=== PATIENT | male | born 1990 | race Caucasian/White ===

== ENCOUNTER 2017-01-11 13:38 | Emergency (ER) | payer MEDICAID, OTHER ==
[2017-01-11 13:45] VITALS: BP 136/74
--- NOTE | 2017-01-11 13:57 | ER Document Report ---
ED Medical Screen (RME) - General Stated Complaint: STD CHECK Notes: did not use protection symptom onset for 5 weeks penile discharge and pyuria denies fever, chills, testicular pain I have greeted and performed a rapid initial assessment of this patient. A comprehensive ED assessment and evaluation of the patient, analysis of test results and completion of the medical decision making process will be conducted by additional ED providers. TRAVEL OUTSIDE OF THE [place] IN LAST 30 DAYS: No - Related Data Allergies/Adverse Reactions: No Known Allergies Allergy (Verified 01/11/17 13:55) Past Medical History Past Surgical History: Reports: Hx Appendectomy, Hx Tonsillectomy - Immunizations Immunizations up to date: Yes Hx Diphtheria, Pertussis, Tetanus Vaccination: Yes Physical Exam - Vital signs Vitals: Temp Pulse Resp BP Pulse Ox 98.5 F 69 16 136/74 H 99 01/11/17 13:44 01/11/17 13:44 01/11/17 13:44 01/11/17 13:44 01/11/17 13:44 Course - Vital Signs Vital signs: Temp Pulse Resp BP Pulse Ox 98.5 F 69 16 136/74 H 99 01/11/17 13:44 01/11/17 13:44 01/11/17 13:44 01/11/17 13:44 01/11/17 13:44
[2017-01-11 14:23] LABS: APPEARANCE,URINE CLEAR; BILIRUBIN,URINE NEGATIVE (NEGATIVE); GLUCOSE, URINE NEGATIVE (NEGATIVE); KETONES,URINE NEGATIVE (NEGATIVE); LEUKOCYTE ESTERASE,URINE NEGATIVE (NEGATIVE); NITRITE,URINE NEGATIVE (NEGATIVE); PROTEIN,URINE NEGATIVE (NEGATIVE); URINE SPECIFIC GRAVITY 1.012; UROBILINOGEN,URINE NEGATIVE mg/dL (<2.0)
[2017-01-11] MEDS ORDERED: CEFTRIAXONE INJ 250 MG VIAL IM ONE (15:18)
[2017-01-11] MEDS ORDERED: AZITHROMYCIN 1 GM SUSP PACKET PO ONE (15:19)
--- NOTE | 2017-01-11 15:19 | ER Document Report ---
ED General - General Chief Complaint: Penile Discharge Stated Complaint: STD CHECK Mode of Arrival: Ambulatory Information source: Patient Notes: Patient is 26 yo male who presents with 2 day history of thin, mild white penile discharge and occasional pyuria with dysuria. He reports unprotected sex approximately 5 weeks ago, endorses history of G/C. He denies any fever, chills , n/v/d or testicular pain. He is concerned about small lesion on the shaft of his penis and is wondering if it is skin tag vs wart. TRAVEL OUTSIDE OF THE [place] IN LAST 30 DAYS: No - Related Data Allergies/Adverse Reactions: No Known Allergies Allergy (Verified 01/11/17 13:55) Past Medical History - Social History Smoking Status: Never Smoker Chew tobacco use (# tins/day): No Frequency of alcohol use: None Drug Abuse: None Family History: Reviewed & Not Pertinent Patient has suicidal ideation: No Patient has homicidal ideation: No Renal/ Medical History: Denies: Hx Peritoneal Dialysis Past Surgical History: Reports: Hx Appendectomy, Hx Tonsillectomy - Immunizations Immunizations up to date: Yes Hx Diphtheria, Pertussis, Tetanus Vaccination: Yes Review of Systems - Review of Systems Constitutional: No symptoms reported EENT: No symptoms reported Cardiovascular: No symptoms reported Respiratory: No symptoms reported Gastrointestinal: No symptoms reported Genitourinary: See HPI Male Genitourinary: See HPI Musculoskeletal: No symptoms reported Skin: No symptoms reported Hematologic/Lymphatic: No symptoms reported Neurological/Psychological: No symptoms reported Physical Exam - Vital signs Vitals: Temp Pulse Resp BP Pulse Ox 98.5 F 69 16 136/74 H 99 01/11/17 13:44 01/11/17 13:44 01/11/17 13:44 01/11/17 13:44 01/11/17 13:44 Interpretation: Hypertensive - Notes Notes: PHYSICAL EXAM: CONSTITUTIONAL: Alert and oriented, well-appearing and in no acute distress. Appears comfortable. HENT: Normocephalic, atraumatic. Moist mucous membranes. EYES: Pupils equal round and reactive to light, EOM intact. Sclera anicteric, conjunctiva are normal. No entrapment. HEART: Regular rate and rhythm without murmurs. LUNGS: CTAB and equal. No wheezes, rales or rhonchi. GI: Normactive bowel sounds. Nontender, non-distended. No organomegaly. no CVAT. : Circumcised penis without erythema or discharge. Skin tag noted to lateral shaft, non-tender. No other lesions noted. Testicles descended, non-tender. BACK: nontender, no paraspinous spasm, 5+/5 strengths, DTRs 2+, SLR -. EXTREMITIES: Normal range of motion, no pitting edema. No cyanosis. Cap Refill < 3 seconds. SKIN: Warm and dry. Normal turgor. No rashes or lesions noted. Course - Re-evaluation Re-evalutation: 01/11/17 15:33 Patient seen and examined. Exam of penis/testicles unremarkable. G/C urine test pending, RPR pending. Urinalysis unremarkable. Will give zithromax 1 g PO and IM rocephin here. Discharged home in stable condition. Follow-up with PMD. Patient in agreement with management and plan. - Vital Signs Vital signs: Temp Pulse Resp BP Pulse Ox 98.5 F 69 16 136/74 H 99 01/11/17 13:44 01/11/17 13:44 01/11/17 13:44 01/11/17 13:44 01/11/17 13:44 - Laboratory Laboratory results interpreted by me: 01/11/17 14:05 Urine Blood SMALL H Discharge - Discharge Clinical Impression: STD exposure Condition: Stable Disposition: HOME, SELF-CARE Additional Instructions: You have been tested for gonorrhea, chlamydia and syphillus. These test results are pending. You have been empirically treated for gonorrhea and chlamydia. You will be contacted if further treatment is necessary. Gonorrhea You have been tested for gonorrhea. In men, this germ infects the urethra (and sometimes the throat). Men usually have drainage from the penis and pain with urination. In women, the germ infects the vagina and fallopian tubes. There may be discharge and pelvic pain. Some women have no symptoms at all. The infection can do permanent damage to the tubes and ovaries. It should be taken very seriously. Treatment is antibiotics. It's important that you receive all recommended medication. Use condoms to prevent spread of the infection. Because this infection is spread sexually, your sexual partner must be checked before resuming sexual relations. If a culture shows gonorrhea germs, it must be reported to the health department. Call the doctor or return at once if you develop increasing fever, rash, joint swelling, severe pelvic pain, vaginal bleeding (other than your period), or problems with your bladder or bowels. Chlamydia You have been tested for a chlamydia infection. Chlamydia is a germ that grows inside the cells of the mucous membranes. It often infects the eyes, urethra, and fallopian tubes. It can cause chronic pain and scar tissue if untreated. Antibiotics are used to treat chlamydia. It's important to take all the medicine even if there are no symptoms. Use condoms to prevent spread of the infection. Because this infection can spread by sexual contact, it's important that your sexual partner be checked before resuming sexual relations. A positive test for chlamydia has to be reported to the health department. Call the doctor or return at once if you develop increasing fever, rash, severe pelvic pain, vaginal bleeding (other than your period), or problems with your bladder or bowels. Follow-Up Care Although no definite follow-up visit has been scheduled for you, you should return if there is unexpected worsening or a significant change in your symptoms. Forms: Elevated Blood Pressure
[2017-01-11] MEDS ORDERED: AZITHROMYCIN 250 MG TABLET PO ONE (15:29)
[2017-01-11] MEDS ORDERED: LIDOCAINE 1% INJ-PF (10 MG/ML) 30 ML SDV INJ ONE (15:29)
[2017-01-11 15:53] LABS: CHLAM PCR NOT DETECTED (NOT DETECT)
== END 2017-01-11 15:43 | disposition home or self-care (01) ==
LOC: ER 13:38
DX: Z20.2 Contact with and (suspected) exposure to infections with a predominantly sexual mode of transmission (principal); N39.0 Urinary tract infection, site not specified; R36.9 Urethral discharge, unspecified; R30.0 Dysuria; L91.8 Other hypertrophic disorders of the skin
CPT/HCPCS: 99283; 96372; 36415; 86592; 81001; 87491; 87591; Q0144; J3490; J0696

== ENCOUNTER 2019-06-23 04:51 | Emergency (ER) | payer MEDICAID, OTHER ==
[2019-06-23] MEDS ORDERED: HALOPERIDOL LACTATE INJ 5 MG/1 ML VIAL IM ONE (05:19)
[2019-06-23] MEDS ORDERED: LORAZEPAM INJ 2 MG/1 ML VIAL IM ONE (05:19)
--- NOTE | 2019-06-23 05:26 | ER Document Report ---
Addendum entered and electronically signed by RICHARD DEXTER MD 06/24/19 15:12: Discharge - Discharge Clinical Impression: Suicidal ideation, PTSD (post-traumatic stress disorder), Relational problem Alcohol intoxication Qualifiers: Complication of substance-induced condition: with unspecified complication Qualified Code(s): F10.929 - Alcohol use, unspecified with intoxication, unspecified Condition: Stable Disposition: HOME, SELF-CARE Additional Instructions: You have been evaluated by both medical and behavioral health providers while in the emergency department. You have been cleared from both acute medical and psychiatric services. There are relational factors and psychosocial issues that are likely contributing to increased stress, anxiety and depression. These are all symptoms of Posttraumatic Stress Disorder Order (PTSD) as well. Alcohol is a depressant and inhibits insight, judgment and impulse control. Family and friends have been included in plan of care which includes increased monitoring/supervision, medications, family/friends being in control of medications and administration, and outpatient medication management as well as therapy in combination. DEPRESSION: (situational) Your evaluation reveals that you have mental depression. While symptoms may be vague, they often include disturbance of sleep, fatigue, loss of appetite, and general loss of interest in life. While depression may be a side effect of drugs, or a reaction to a major change in your life, many cases have no known cause. If depression is acute, and related to a major loss in your life, you can expect it to clear completely with time. If you have been depressed a long time, are prone to repeated bouts of depression or low mood, or have been thinking of suicide, get help. Depression can be treated with anti-depressant medication and counselling. Long-term depression will often take a few weeks to clear, even with appropriate medication. Follow-up care is important. SUICIDAL IDEATION: Suicidal ideation is a common medical term for thoughts about suicide, which may be as detailed as a formulated plan, without the suicidal act itself. Although most people who undergo suicidal ideation do not commit suicide, some go on to make suicide attempts. The range of suicidal ideation varies greatly from fleeting to detailed planning, role playing, and unsuccessful attempts. While thoughts about suicide are common, most people do not carry out serious actions to commit suicide. Based upon your evaluation and discussion with you, we do not believe you are currently at risk to act upon your thoughts of suicide. You have agreed to return to the Emergency Department, at any time, if you feel inclined to act upon your suicidal thoughts. Post-Traumatic Stress Disorder (history of) You seem to have post-traumatic stress disorder (PTSD). PTSD can cause chronic anxiety, sleeping problems, social withdrawal, and drug abuse. It can occur following a traumatic personal experience such as an accident, rape, assault, or of a loved one, or after experiencing a war or natural disaster. Symptoms may be delayed for days or even years. Emotional numbing, the inability to express grief, is usually the earliest sign. There may be apathy or agitation, aggression, and inability to perform ordinary tasks. Often there are frightening nightmares and sudden, intruding memories of the trauma. Panic attacks and feelings of guilt are common. Alcohol and drug use make post-traumatic stress symptoms worse. Medication may be temporarily necessary to combat anxiety, panic attacks, and depression. Medicine should not be considered a "cure." You must deal with the trauma and prepare to go on. Group therapy is often helpful. This helps you "talk through" the problem with others who share your symptoms. We can provide you with an appropriate referral. FOLLOW-UP CARE: You have been started on and provided prescriptions for Effexor 37.5MG twice a day for depression/increase energy/focus/to curb alcohol cravings and Buspar 5MG twice a day for anxiety/calming effect/depression/sleep. You have outpatient follow up appointments at [facility] ([facility]) for medication evaluation on 06/30/2019 at 0900 and you have ongoing appointment already scheduled for therapy with the next on on 07/06/2019. You have been provided the [facility] Mobile Crisis number for crisis, talk therapy and linkage to other services/supports. Your family and friends have been included in the plan of care. If you experience worsening or a significant change in your symptoms, notify the physician immediately, utilize mobile crisis or return to the Emergency Department at any time for re-evaluation. Prescriptions: Buspirone HCl [Buspar 5 mg Tablet] 1 tab PO BID #14 tab Venlafaxine HCl ER [Effexor Xr 37.5 mg Cap.sr] 37.5 mg PO BID #14 cap.sr.24h Forms: Return to Work Referrals: [facility] [Provider Group] - 06/30/19 9:00 am (Also have therapy sessions scheduled at [facility] with the next one on 07/06/19.) [facility] Crisis Team [Outside] - Follow up as needed Addendum entered and electronically signed by GEOVANNY MENDIOLA LPC 06/24/19 13:41: Discharge - Discharge Clinical Impression: Suicidal ideation, Alcohol intoxication, PTSD (post-traumatic stress disorder), Relational problem Condition: Stable Disposition: HOME, SELF-CARE Additional Instructions: You have been evaluated by both medical and behavioral health providers while in the emergency department. You have been cleared from both acute medical and psychiatric services. There are relational factors and psychosocial issues that are likely contributing to increased stress, anxiety and depression. These are all symptoms of Posttraumatic Stress Disorder Order (PTSD) as well. Alcohol is a depressant and inhibits insight, judgment and impulse control. Family and friends have been included in plan of care which includes increased monitoring/supervision, medications, family/friends being in control of medications and administration, and outpatient medication management as well as therapy in combination. DEPRESSION: (situational) Your evaluation reveals that you have mental depression. While symptoms may be vague, they often include disturbance of sleep, fatigue, loss of appetite, and general loss of interest in life. While depression may be a side effect of drugs, or a reaction to a major change in your life, many cases have no known cause. If depression is acute, and related to a major loss in your life, you can expect it to clear completely with time. If you have been depressed a long time , are prone to repeated bouts of depression or low mood, or have been thinking of suicide, get help. Depression can be treated with anti-depressant medication and counselling. Long-term depression will often take a few weeks to clear, even with appropriate medication. Follow-up care is important. SUICIDAL IDEATION: Suicidal ideation is a common medical term for thoughts about suicide, which may be as detailed as a formulated plan, without the suicidal act itself. Although most people who undergo suicidal ideation do not commit suicide, some go on to make suicide attempts. The range of suicidal ideation varies greatly from fleeting to detailed planning, role playing, and unsuccessful attempts. While thoughts about suicide are common, most people do not carry out serious actions to commit suicide. Based upon your evaluation and discussion with you, we do not believe you are currently at risk to act upon your thoughts of suicide. You have agreed to return to the Emergency Department, at any time, if you feel inclined to act upon your suicidal thoughts. Post-Traumatic Stress Disorder (history of) You seem to have post-traumatic stress disorder (PTSD). PTSD can cause chronic anxiety, sleeping problems, social withdrawal, and drug abuse. It can occur following a traumatic personal experience such as an accident, rape, assault, or of a loved one, or after experiencing a war or natural disaster. Symptoms may be delayed for days or even years. Emotional numbing, the inability to express grief, is usually the earliest sign. There may be apathy or agitation, aggression, and inability to perform ordinary tasks. Often there are frightening nightmares and sudden, intruding memories of the trauma. Panic attacks and feelings of guilt are common. Alcohol and drug use make post- traumatic stress symptoms worse. Medication may be temporarily necessary to combat anxiety, panic attacks, and depression. Medicine should not be considered a "cure." You must deal with the trauma and prepare to go on. Group therapy is often helpful. This helps you "talk through" the problem with others who share your symptoms. We can provide you with an appropriate referral. FOLLOW-UP CARE: You have been started on and provided prescriptions for Effexor 37.5MG twice a day for depression/increase energy/focus/to curb alcohol cravings and Buspar 5MG twice a day for anxiety/calming effect/depression/sleep. You have outpatient follow up appointments at [facility] ([facility]) for medication evaluation on 06/30/2019 at 0900 and you have ongoing appointment already scheduled for therapy with the next on on 07/06/2019. You have been provided the [facility] Mobile Crisis number for crisis, talk therapy and linkage to other services/supports. Your family and friends have been included in the plan of care. If you experience worsening or a significant change in your symptoms, notify the physician immediately, utilize mobile crisis or return to the Emergency Department at any time for re-evaluation. Referrals: [facility] [Outside] - Follow up as needed [facility] [Provider Group] - 06/30/19 9:00 am (Also have therapy sessions scheduled at [facility] with the next one on 07/06/19.) Original Note: ED General - General Chief Complaint: Psych Problem Stated Complaint: PSYCH PROBLEM Notes: Patient is a 28-year-old male that presents to the emergency department for chief complaint of suicidal ideation. Patient states that he wanted to kill himself this evening, he apparently went to get a gun, and was going to commit suicide but his friend had stopped him, and brought him to the emergency department. He states his been having depression, has PTSD, and at this time is tearful, concerned, and does want to get help. He denies having any hallucinations, auditory or visual, but was not having depressive thoughts for some time, and things escalated early this morning, and yesterday evening. Past Medical History: PTSD, depression Past Surgical History: Denies recent or pertinent surgical history Social History: Admits to social alcohol use, denies tobacco or illicit drug use Family History: Reviewed and noncontributory for presenting illness Allergies: Reviewed, see documented allergy list. REVIEW OF SYSTEMS: Other than noted above, the 12 point review of systems was reviewed with the patient and were negative, all pertinent findings are included in the HPI. PHYSICAL EXAMINATION: Vital signs reviewed, nursing noted reviewed. GENERAL: Patient is tearful, and appears very anxious as well. HEAD: Atraumatic, normocephalic. EYES: Eyes appear normal, extraocular movements intact, sclera anicteric, conjunctiva are normal. ENT: nares patent, oropharynx clear without exudates. Moist mucous membranes. NECK: Normal range of motion, supple without lymphadenopathy LUNGS: Breath sounds clear to auscultation bilaterally and equal. No wheezes rales or rhonchi. HEART: Heart rate tachycardic, regular rhythm, no audible murmur. ABDOMEN: Soft, nontender, normoactive bowel sounds. No rebound, guarding, or rigidity. No masses appreciated. EXTREMITIES: Nontender, good range of motion, no pitting or edema. NEUROLOGICAL: No focal neurological deficits. Moves all extremities spontaneously Motor and sensory grossly intact on exam. PSYCH: Anxious, pressured speech, poor judgment and thought process. SKIN: Warm, Dry, normal turgor, no rashes or lesions noted on exposed skin TRAVEL OUTSIDE OF THE [place] IN LAST 30 DAYS: No - Related Data Allergies/Adverse Reactions: No Known Allergies Allergy (Verified 01/11/17 13:55) Past Medical History - Social History Smoking Status: Former Smoker Family History: Reviewed & Not Pertinent Renal/ Medical History: Denies: Hx Peritoneal Dialysis Past Surgical History: Reports: Hx Appendectomy, Hx Tonsillectomy - Immunizations Immunizations up to date: Yes Hx Diphtheria, Pertussis, Tetanus Vaccination: Yes Physical Exam - Vital signs Vitals: Temp Pulse Resp BP Pulse Ox 98.2 F 110 H 18 146/96 H 94 06/23/19 04:57 06/23/19 04:57 06/23/19 04:57 06/23/19 04:57 06/23/19 04:57 Course - Re-evaluation Re-evalutation: Patient seen and examined, vital signs reviewed. Medical screening testing was ordered including bloodwork, EKG, and toxicology. Patient has been stable from a hemodynamic standpoint. Patient updated on plan of care. IVC paperwork was filled out for this individual, I do feel he is an immediate threat to himself, and he expressed as much, by stating he was going to get a gun and kill himself, he does want to seek help, and wants to get better. He was treated with Ativan, and Haldol, as he was very anxious, and agitated upon arrival to the ED, but was agreeable to stay, and was agreeable to have medications to help him feel better. - Vital Signs Vital signs: Temp Pulse Resp BP Pulse Ox 98.1 F 80 16 120/59 L 97 06/23/19 18:45 06/23/19 18:45 06/23/19 18:45 06/23/19 18:45 06/23/19 18:45 - Laboratory Result Diagrams: 06/23/19 06:10 06/23/19 06:10 Laboratory results interpreted by me: 06/23/19 06/23/19 06:10 06:10 Seg Neutrophils % 38.0 L Lymphocytes % 48.8 H ALT 73 H Salicylates < 1.0 L Acetaminophen < 10 L Discharge - Discharge Clinical Impression: Suicidal ideation Condition: Stable Disposition: PSYCH HOSP/UNIT
[2019-06-23 06:17] LABS: APPEARANCE,URINE CLEAR; BILIRUBIN,URINE NEGATIVE (NEGATIVE); COLOR,URINE STRAW; GLUCOSE, URINE NEGATIVE (NEGATIVE); KETONES,URINE NEGATIVE (NEGATIVE); LEUKOCYTE ESTERASE,URINE NEGATIVE (NEGATIVE); NITRITE,URINE NEGATIVE (NEGATIVE); PROTEIN,URINE NEGATIVE (NEGATIVE); URINE SPECIFIC GRAVITY 1.005; UROBILINOGEN,URINE NEGATIVE mg/dL (<2.0)
[2019-06-23 06:23] LABS: ABSOLUTE BASOPHILS # (AUTO) 0.1 10^3/uL (0.0-0.2); ABSOLUTE EOSINOPHILS # (AUTO) 0.2 10^3/uL (0.0-0.6); ABSOLUTE LYMPHOCYTES (AUTO) 3.3 10^3/uL (0.5-4.7); ABSOLUTE MONOCYTES (AUTO) 0.6 10^3/uL (0.1-1.4); ABSOLUTE NEUT (AUTO) 2.5 10^3/uL (1.7-8.2); EOSINOPHILS % (AUTO) 3.7 % (0-6); HEMATOCRIT 41.6 % (37.9-51.0); HEMOGLOBIN 14.2 g/dL (13.5-17.0); LYMPHOCYTES % (AUTO) 48.8 % (13-45); MEAN CORPUSCULAR HEMOGLOBIN 29.8 pg (27.0-33.4); MEAN CORPUSCULAR VOLUME 88 fl (80-97); MONOCYTES % (AUTO) 8.5 % (3-13); PLATELET COUNT 239 10^3/uL (150-450); RED BLOOD COUNT 4.75 10^6/uL (4.35-5.55); RED CELL DISTRIBUTION WIDTH 13.6 % (11.5-14.0); TOTAL CELLS COUNTED % (AUTO) 100 %; WHITE BLOOD COUNT 6.7 10^3/uL (4.0-10.5)
[2019-06-23 06:30] LABS: URINE AMPHETAMINES SCREEN NEGATIVE; URINE BARBITURATES SCREEN NEGATIVE; URINE BENZODIAZEPINES SCREEN NEGATIVE; URINE COCAINE SCREEN NEGATIVE; URINE MARIJUANA (THC) SCREEN NEGATIVE; URINE METHADONE SCREEN NEGATIVE; URINE PHENCYCLIDINE SCREEN NEGATIVE
[2019-06-23 06:41] LABS: ALANINE AMINOTRANSFERASE 73 U/L (21-72); ALBUMIN 4.7 g/dL (3.5-5.0); ALCOHOL 155 mg/dL (NONE DETECTED); ALKALINE PHOSPHATASE 56 U/L (38-126); ANION GAP 17 (5-19); ASPARTATE AMINO TRANSFERASE 49 U/L (17-59); BILIRUBIN,DIRECT 0.2 mg/dL (0.0-0.4); BILIRUBIN,TOTAL 0.3 mg/dL (0.2-1.3); BLOOD UREA NITROGEN 13 mg/dL (7-20); CALCIUM 9.6 mg/dL (8.4-10.2); CARBON DIOXIDE 24 mmol/L (22-30); CHLORIDE 104 mmol/L (98-107); GLUCOSE 99 mg/dL (75-110); POTASSIUM 3.8 mmol/L (3.6-5.0); TOTAL PROTEIN 7.9 g/dL (6.3-8.2)
[2019-06-23 06:46] LABS: ACETAMINOPHEN < 10 ug/mL (10-30); SALICYLATE < 1.0 mg/dL (2.0-20.0)
--- NOTE | 2019-06-23 07:10 | ER Document Report ---
Doctor's Note Notes: 06/23/19 07:10 The patient is medically stable for inpatient or outpatient psychiatric care. Labs have been reviewed.
--- NOTE | 2019-06-23 12:49 | ER Document Report ---
Entered by WILFREDO MAHER SCRIBE 06/23/19 1200 Acting as scribe for:ESTEVAN SANCHEZ DO Doctor's Note Notes: 06/23/19 11:54 Patient is a 28-year-old male with history of depression, and PTSD presenting to the emergency department with suicidal, homicidal ideations. Last night patient found out that his cheated on him. Patient states that his friend brought him in, he "could not be safe", he states that he is very sad and tired at the moment. Patient states that he felt like hurting himself, and others using pills, and knives. Patient states that he has been to see a doctor by the movie theater here in [place] for suicidal ideations before. Patient states that a month and a half ago he believes he was taking Wellbutrin as prescribed by psychiatrist in [place], he currently does not take any medications. States he stopped taking this about a month and a half ago of his own accord. Patient denies ever being hospitalized for a suicidal, homicidal ideation. 06/23/19 11:59 PHYSICAL EXAM GENERAL: Sleeping when I walked into the room, had to be shaken to be woken up and then interacts well. Alert, interacts well. Sad. No acute distress. HEAD: Normocephalic, atraumatic. EYES: Pupils equal, round, and reactive to light. Extraocular movements intact. ENT: Oral mucosa moist, tongue midline. NECK: Full range of motion. Supple. Trachea midline. LUNGS: Clear to auscultation bilaterally, no wheezes, rales, or rhonchi. No respiratory distress. HEART: Regular rate and rhythm. No murmurs, gallops, or rubs. ABDOMEN: Soft, non-tender. Non-distended. Bowel sounds present in all 4 quadrants. No guarding, rigidity, or rebound. EXTREMITIES: Moves all 4 extremities spontaneously. No edema, No cyanosis. NEUROLOGICAL: Alert and oriented x3. Normal speech. Biceps and patellar DTRs 2+ bilaterally. PSYCH: Flat affect, normal mood. SKIN: Warm, dry, normal turgor. No rashes or lesions noted. 06/23/19 12:47 Medication recommendations per behavioral health team include [facility] the [facility] and starting Effexor 37.5 mg twice a day and BuSpar 5 mg twice a day. They recommend continuing to keep the patient is an involuntary commitment and observing the effects the medication have, re- assessed tomorrow. I personally performed the services described in the documentation, reviewed and edited the documentation which was dictated to the scribe in my presence, and it accurately records my words and actions.
[2019-06-23] MEDS: BUSPIRONE HCL 10 MG TABLET PO SCH (13:26)
[2019-06-23] MEDS: VENLAFAXINE HCL 37.5 MG CAP.SR.24H PO SCH ×2 (13:26→18:31)
--- NOTE | 2019-06-23 13:43 | EKG REPORT ---
SEVERITY:- NORMAL ECG - SINUS RHYTHM : Confirmed by: Boris Carver 23-Jun-2019 13:43:01
--- NOTE | 2019-06-24 09:56 | ER Document Report ---
Doctor's Note Notes: 06/24/19 09:56 28-year-old male with alcohol intoxication and suicidal ideations with a plan to shoot himself with a gun. He was stopped by a friend. Labs and vital signs as recorded. Awaiting psychiatric evaluation. 06/24/19 15:10 The psychiatry team is seen and assessed the patient. They do not believe that the patient meets IVC criteria at this time. They have found outpatient follow- up for the patient. Patient's mom is currently in the room and is comfortable with the patient going home. Patient no longer has a firearm as this is been taken from him. They would like me to provide a 7-day prescription for Effexor and BuSpar.
--- NOTE | 2019-06-24 10:38 | ER Document Report ---
ED General - General Chief Complaint: Psych Problem Stated Complaint: PSYCH PROBLEM Time Seen by Provider: 06/23/19 05:42 TRAVEL OUTSIDE OF THE [place] IN LAST 30 DAYS: No - Related Data Allergies/Adverse Reactions: No Known Allergies Allergy (Verified 01/11/17 13:55) Past Medical History - Social History Smoking Status: Former Smoker Frequency of alcohol use: Occasional Drug Abuse: None Family History: Reviewed & Not Pertinent Patient has suicidal ideation: No Patient has homicidal ideation: No Renal/ Medical History: Denies: Hx Peritoneal Dialysis Past Surgical History: Reports: Hx Appendectomy, Hx Tonsillectomy - Immunizations Immunizations up to date: Yes Hx Diphtheria, Pertussis, Tetanus Vaccination: Yes Physical Exam - Vital signs Vitals: Temp Pulse Resp BP Pulse Ox 98.2 F 110 H 18 146/96 H 94 06/23/19 04:57 06/23/19 04:57 06/23/19 04:57 06/23/19 04:57 06/23/19 04:57 Course - Vital Signs Vital signs: Temp Pulse Resp BP Pulse Ox 98.6 F 68 18 143/77 H 97 06/24/19 09:34 06/24/19 09:34 06/24/19 09:34 06/24/19 09:34 06/24/19 09:34 - Laboratory Result Diagrams: 06/23/19 06:10 06/23/19 06:10 Laboratory results interpreted by me: 06/23/19 06/23/19 06:10 06:10 Seg Neutrophils % 38.0 L Lymphocytes % 48.8 H ALT 73 H Salicylates < 1.0 L Acetaminophen < 10 L Discharge - Discharge Clinical Impression: Suicidal ideation Condition: Stable Disposition: PSYCH HOSP/UNIT
[2019-06-24] MEDS: BUSPIRONE HCL 10 MG TABLET PO SCH (12:27)
[2019-06-24] MEDS: VENLAFAXINE HCL 37.5 MG CAP.SR.24H PO SCH (12:28)
[2019-06-24] MEDS ORDERED: VENLAFAXINE HCL 37.5 MG CAP.SR.24H PO SCH (12:30)
[2019-06-24 15:16] VITALS: BP 135/71
== END 2019-06-24 15:28 | disposition home or self-care (01) ==
LOC: EEVIPCON 04:51 → ER 04:51
DX: R45.851 Suicidal ideations (principal); F43.10 Post-traumatic stress disorder, unspecified; F10.929 Alcohol use, unspecified with intoxication, unspecified; Z63.0 Problems in relationship with spouse or partner; Z79.899 Other long term (current) drug therapy; Z87.891 Personal history of nicotine dependence
CPT/HCPCS: 93005; 99285; 96374; 96375; 36415; 80307 ×4; 85025; 80053; 81001; 93010; J3490 ×2; J1630; J2060